=== PATIENT | female | born 1950 | race Caucasian/White ===

== ENCOUNTER 2016-08-10 06:18 | Day surgery (SDC) | payer OTHER ==
[~2016-08-10] VITALS: Ht 162.6 cm; Wt 45.4 kg
[~2016-08-10 06:18] MED LIST: LEVAQUIN500 MG PO; LORAZEPAM0.5 MG PO; MEDROL DOSEPAK4 MG PO; PREDNISONE20 MG PO; PROAIR HFA8.5 GM IH; ROBITUSSIN AC,T10 ML PO; SERTRALINE HCL25 MG PO; SPIRIVA1 INHALATI IH
[2016-08-10 07:49] VITALS: BP 145/67
[2016-08-10 07:54] LABS: PROTHROMBIN TIME 10.5 (9.2-11.2)
[2016-08-10 08:12] LABS: ALKALINE PHOSPHATASE 68 IU/L (3-129); ANION GAP 8 MEQ/L (2-14); CHLORIDE 102 MEQ/L (99-109); GFR ESTIMATE (CALCULATED) > 59 mL/min/; GLUCOSE 93 mg/dL (70-99); POTASSIUM 4.6 MEQ/L (3.7-5.4); SAMPLE HEMOLYSIS CHECK 1; SAMPLE ICTERIC CHECK 0; SAMPLE LIPEMIA CHECK 0; SODIUM 138 MEQ/L (136-147); TOTAL BILIRUBIN 0.4 MG/DL (0.0-1.0); UREA NITROGEN (BUN) 7 mg/dL (9-23)
[2016-08-10] MEDS ORDERED: COLACE100 MG PO (10:07)
[2016-08-10] MEDS ORDERED: NORCO 5/3251 TABLET PO (10:07)
[2016-08-10 10:33] VITALS: BP 111/53
[2016-08-10 12:00] VITALS: BP 119/51
== END 2016-08-10 12:35 | disposition home or self-care (01) ==
LOC: SDC 06:18
PROVIDERS: Thoracic Surgery (Cardiothoracic Vascular Surgery)
PROC: 0WBC4ZX Excision of Mediastinum, Percutaneous Endoscopic Approach, Diagnostic (ICD-10-PCS; principal; 2016-08-10)
DX: C34.12 Malignant neoplasm of upper lobe, left bronchus or lung (principal); F41.1 Generalized anxiety disorder; J44.9 Chronic obstructive pulmonary disease, unspecified; M81.0 Age-related osteoporosis without current pathological fracture
CPT/HCPCS: 80053; 85025; 85610; 86850; 86900; 86901; 88305; 93005; J0330; J0690; J1100; J1170; J2405; J2710; J3010

== ENCOUNTER 2016-10-18 13:02 | Emergency (ER) | payer OTHER ==
[~2016-10-18] VITALS: Ht 162.6 cm; Wt 46.3 kg
[~2016-10-18 13:02] MED LIST changes: +COLACE100 MG PO; +NORCO 5/3251 TABLET PO
[2016-10-18 14:04] LABS: BASOPHIL COUNT 0.1 K/uL (0-0.1); EOSINOPHIL (%) 0.1 % (0-5); HEMATOCRIT 43.8 % (36.0-46.0); IMMATURE GRANULOCYTE (%) 0.4 % (0.0-0.7); IMMATURE GRANULOCYTE COUNT 0.1 K/uL; INSTRUMENT ABS NEUTROPHIL CT 11.9 K/uL; LYMPHOCYTE COUNT 1.4 K/uL (1.0-2.8); MCH 32.1 PG (29.0-34.0); MCHC 33.3 G/DL (30.0-36.0); MCV 96.3 FL (83-99); MEAN PLAT.VOLUME 10.5 uM^3 (9.5-12.4); MONOCYTE COUNT 0.7 K/uL (0-0.8); NEUTROPHIL (%) 84.1 % (45-76); NEUTROPHIL COUNT 11.9 K/uL (1.8-6.4); PLATELET COUNT 260 K/uL (156-360); RBC DIS.WIDTH-CV 13.1 % (11.8-14.6); RBC DIS.WIDTH-SD 46.8 % (39-53); RED BLOOD COUNT 4.55 M/uL (3.80-5.20); WHITE BLOOD COUNT 14.1 K/uL (4.1-10.2)
[2016-10-18 14:14] LABS: CHLORIDE 101 mEq/L (99-109); POTASSIUM 4.1 mEq/L (3.7-5.4); SODIUM 139 mEq/L (136-147)
[2016-10-18 14:16] LABS: GLUCOSE 125 mg/dL (70-99)
[2016-10-18 14:17] LABS: ANION GAP 10 MEQ/L (2-14)
[2016-10-18 14:18] LABS: TOTAL BILIRUBIN 0.4 mg/dL (0.0-1.0)
[2016-10-18 14:20] LABS: ALKALINE PHOSPHATASE 84 IU/L (3-129); GFR ESTIMATE (CALCULATED) > 59 mL/min/
[2016-10-18 14:21] LABS: UREA NITROGEN (BUN) 9 mg/dL (9-23)
[2016-10-18 14:23] LABS: LIPASE 15 U/L (1.0-51.0)
[2016-10-18 16:45] LABS: ADD MIUA? YES; BILIRUBIN NEGATIVE; BLOOD SMALL; COLOR YELLOW ((YELLOW)); GLUCOSE (STRIP) NEGATIVE; KETONES NEGATIVE; LEUKOCYTES NEGATIVE; NITRITE NEGATIVE; PROTEIN (STRIP) NEGATIVE; UROBILINOGEN 0.2 MG/DL (0.2-1.0)
[2016-10-18 16:56] LABS: BACTERIA NONE SEEN /HPF; EPITHELIAL CELLS RARE /HPF; MUCUS TRACE /LPF; RED BLOOD CELLS 0-5 /HPF (0-5); WHITE BLOOD CELLS 0-5 /HPF (0-5)
[2016-10-18 17:05] LABS: CRYSTALS NONE SEEN
[2016-10-18 17:06] LABS: CASTS NONE SEEN /LPF
[2016-10-18] MEDS ORDERED: CONSTULOSE10 GM/15 M PO (17:07)
[2016-10-18] MEDS ORDERED: COLACE100 MG PO (17:07)
[2016-10-18 17:16] LABS: SPECIFIC GRAVITY > 1.030 (1.000-1.030)
[2016-10-18 17:27] VITALS: BP 104/57
== END 2016-10-18 17:28 | disposition home or self-care (01) ==
LOC: EME 13:02
PROVIDERS: Emergency Medicine
DX: K59.00 Constipation, unspecified (principal); C34.90 Malignant neoplasm of unspecified part of unspecified bronchus or lung; F17.200 Nicotine dependence, unspecified, uncomplicated; Z71.6 Tobacco abuse counseling
CPT/HCPCS: 74177; 80053; 81003; 83605; 83690; 85025; 99281; 99285; J1170; J2270; J2405; J3010; J7030; J7050

== ENCOUNTER 2016-10-19 11:15 | Emergency (ER) | payer OTHER ==
[~2016-10-19] VITALS: Ht 162.6 cm; Wt 46.0 kg
[~2016-10-19 11:15] MED LIST changes: +CONSTULOSE10 GM/15 M PO
[2016-10-19 12:29] LABS: HEMATOCRIT 43.6 % (36.0-46.0); MCH 31.9 PG (29.0-34.0); MCHC 32.6 G/DL (30.0-36.0); RBC DIS.WIDTH-CV 13.2 % (11.8-14.6); RBC DIS.WIDTH-SD 47.9 % (39-53); RED BLOOD COUNT 4.45 M/uL (3.80-5.20); WHITE BLOOD COUNT 12.9 K/uL (4.1-10.2)
[2016-10-19 12:52] LABS: TROP-I INTERPRETATION NEGATIVE; TROPONIN-I < 0.01 ng/mL (0.0-0.30)
[2016-10-19 13:50] LABS: CHLORIDE 101 mEq/L (99-109); POTASSIUM 3.9 mEq/L (3.7-5.4); SODIUM 135 mEq/L (136-147)
[2016-10-19 13:52] LABS: GLUCOSE 138 mg/dL (70-99)
[2016-10-19 13:53] LABS: ANION GAP 11 MEQ/L (2-14)
[2016-10-19 13:55] LABS: ALKALINE PHOSPHATASE 76 IU/L (3-129); GFR ESTIMATE (CALCULATED) > 59 mL/min/; TOTAL BILIRUBIN 0.6 mg/dL (0.0-1.0)
[2016-10-19 13:57] LABS: UREA NITROGEN (BUN) 8 mg/dL (9-23)
[2016-10-19 13:59] LABS: LIPASE 12 U/L (1.0-51.0)
[2016-10-19 14:59] LABS: MEAN PLAT.VOLUME 10.6 uM^3 (9.5-12.4); PLATELET COUNT 253 K/uL (156-360)
[2016-10-19 16:38] VITALS: BP 110/66
[2016-10-20] MEDS ORDERED: COL-RITE100 M1 PO (13:22)
[2016-10-20] MEDS ORDERED: LORAZEPAM1 MG PO (13:23)
[2016-10-20] MEDS ORDERED: SPIRIVA1 INHALATI IH (13:25)
[2016-10-20] MEDS ORDERED: NICOTINE LOZENGE4 MG BC (13:28)
== END 2016-10-19 16:38 | disposition home or self-care (01) ==
LOC: EME 11:15
PROVIDERS: Emergency Medicine; Nurse Practitioner Family
DX: K59.00 Constipation, unspecified (principal); J45.909 Unspecified asthma, uncomplicated; J44.9 Chronic obstructive pulmonary disease, unspecified; F32.9 Major depressive disorder, single episode, unspecified; F41.9 Anxiety disorder, unspecified; C34.90 Malignant neoplasm of unspecified part of unspecified bronchus or lung; F17.200 Nicotine dependence, unspecified, uncomplicated
CPT/HCPCS: 71020; 74000; 80048; 80053; 83605; 83690; 84484; 85027; 93005; 99281; 99284; J1885

== ENCOUNTER 2016-10-20 09:43 | Inpatient (IN) | payer OTHER ==
[~2016-10-20] VITALS: Ht 162.6 cm; Wt 45.0 kg
[2016-10-20 11:15] LABS: HEMATOCRIT 45.7 % (36.0-46.0); MCH 32.2 PG (29.0-34.0); MCHC 34.4 G/DL (30.0-36.0); RBC DIS.WIDTH-CV 13.1 % (11.8-14.6); RED BLOOD COUNT 4.88 M/uL (3.80-5.20)
[2016-10-20 11:17] LABS: MCV 93.6 FL (83-99); WHITE BLOOD COUNT 21.3 K/uL (4.1-10.2)
[2016-10-20 11:20] LABS: CHLORIDE 96 mEq/L (99-109); POTASSIUM 3.9 mEq/L (3.7-5.4); SODIUM 135 mEq/L (136-147)
[2016-10-20 11:22] LABS: GLUCOSE 161 mg/dL (70-99)
[2016-10-20 11:23] LABS: ANION GAP 15 MEQ/L (2-14)
[2016-10-20 11:25] LABS: ALKALINE PHOSPHATASE 68 IU/L (3-129)
[2016-10-20 11:26] LABS: GFR ESTIMATE (CALCULATED) > 59 mL/min/
[2016-10-20 11:27] LABS: UREA NITROGEN (BUN) 17 mg/dL (9-23)
[2016-10-20 11:29] LABS: LIPASE 10 U/L (1.0-51.0)
[2016-10-20 11:30] LABS: ADD MIUA? YES; BILIRUBIN NEGATIVE; BLOOD SMALL; COLOR YELLOW ((YELLOW)); GLUCOSE (STRIP) NEGATIVE; KETONES 5; LEUKOCYTES TRACE; NITRITE NEGATIVE; PROTEIN (STRIP) 30; UROBILINOGEN 0.2 MG/DL (0.2-1.0)
[2016-10-20 11:32] LABS: TOTAL BILIRUBIN 0.8 mg/dL (0.0-1.0)
[2016-10-20 11:59] LABS: INTER. NORMALIZED RATIO 1.2; PROTHROMBIN TIME 12.4 (9.2-11.2); PTT 30.1 (25-32)
[2016-10-20 12:00] LABS: BACTERIA NONE SEEN /HPF; EPITHELIAL CELLS RARE /HPF; HYALINE CASTS 20-30 /LPF; MUCUS TRACE /LPF; RED BLOOD CELLS 0-5 /HPF (0-5); UCUL ADDED? NO; WHITE BLOOD CELLS 0-5 /HPF (0-5)
[2016-10-20 12:14] LABS: MEAN PLAT.VOLUME 11.3 uM^3 (9.5-12.4); PLATELET COUNT 256 K/uL (156-360)
[2016-10-20 12:24] LABS: SPECIFIC GRAVITY 1.088 (1.000-1.030)
[2016-10-20] MEDS ORDERED: COL-RITE100 M1 PO (13:22)
[2016-10-20] MEDS ORDERED: LORAZEPAM1 MG PO (13:23)
[2016-10-20] MEDS ORDERED: SPIRIVA1 INHALATI IH (13:25)
[2016-10-20] MEDS ORDERED: NICOTINE LOZENGE4 MG BC (13:28)
[2016-10-20 19:26] LABS: HEMATOCRIT 43.4 % (36.0-46.0); MCH 31.6 PG (29.0-34.0); MCHC 33.2 G/DL (30.0-36.0); MCV 95.4 FL (83-99); RBC DIS.WIDTH-CV 13.2 % (11.8-14.6); RBC DIS.WIDTH-SD 47.2 % (39-53); RED BLOOD COUNT 4.55 M/uL (3.80-5.20); WHITE BLOOD COUNT 18.3 K/uL (4.1-10.2)
[2016-10-20 19:43] LABS: SAMPLE HEMOLYSIS CHECK 0; SAMPLE ICTERIC CHECK 0; SAMPLE LIPEMIA CHECK 0
[2016-10-20 19:53] LABS: TROP-I INTERPRETATION NEGATIVE; TROPONIN-I 0.01 ng/mL (0.0-0.30)
[2016-10-20 20:15] LABS: PLATELET COUNT UNABLE TO REPORT K/uL (156-360)
[2016-10-20 20:21] LABS: GFR ESTIMATE (CALCULATED) > 59 mL/min/; GLUCOSE 140 mg/dL (70-99); UREA NITROGEN (BUN) 18 mg/dL (9-23)
[2016-10-20 20:22] LABS: ANION GAP 7 MEQ/L (2-14); CHLORIDE 101 MEQ/L (99-109); POTASSIUM 4.2 MEQ/L (3.7-5.4); SODIUM 139 MEQ/L (136-147)
[2016-10-21] VITALS (7 sets, daily range): BP systolic 109–133; BP diastolic 57–64
[2016-10-21 07:13] LABS: TROP-I INTERPRETATION NEGATIVE; TROPONIN-I < 0.01 ng/mL (0.0-0.30)
[2016-10-21 07:23] LABS: HEMATOCRIT 38.2 % (36.0-46.0); MCH 32.1 PG (29.0-34.0); MCHC 33.5 G/DL (30.0-36.0); MCV 95.7 FL (83-99); MEAN PLAT.VOLUME 11.5 uM^3 (9.5-12.4); PLATELET COUNT 210 K/uL (156-360); RBC DIS.WIDTH-CV 13.5 % (11.8-14.6); RBC DIS.WIDTH-SD 47.8 % (39-53); RED BLOOD COUNT 3.99 M/uL (3.80-5.20)
[2016-10-21 07:26] LABS: WHITE BLOOD COUNT 12.4 K/uL (4.1-10.2)
[2016-10-21 07:29] LABS: ANION GAP 9 MEQ/L (2-14); CHLORIDE 100 MEQ/L (99-109); GFR ESTIMATE (CALCULATED) > 59 mL/min/; SAMPLE HEMOLYSIS CHECK 0; SAMPLE ICTERIC CHECK 0; SAMPLE LIPEMIA CHECK 0; SODIUM 139 MEQ/L (136-147); UREA NITROGEN (BUN) 15 mg/dL (9-23)
[2016-10-21 07:31] LABS: GLUCOSE 88 mg/dL (70-99)
[2016-10-21 23:35] LABS: BASE EXCESS 2.1 mEq/L (-3 to +3); BICARBONATE 30.3 mEq/L (22-26); CARBOXY HGB 2.2 % (0-5); METHEMOGLOBIN 1.7 % (0-1.5); PO2 101 mm Hg (80-100)
[2016-10-21 23:36] LABS: COMMENTS - BLOOD GASES A+C+; DEVICE HHFNC; FI02 100 %; O2 FLOW 50 L/MIN; PCO2 63 mm Hg (35-45); SITE RR
[2016-10-21 23:37] LABS: pH 7.29 (7.35-7.45)
[2016-10-22] VITALS (20 sets, daily range): BP systolic 104–135; BP diastolic 46–83
[2016-10-22 01:09] LABS: METH RESISTANT S AUREUS PCR NEGATIVE (NEGATIVE)
[2016-10-22 01:10] LABS: INFLUENZA A VIRAL ANTIGEN NEGATIVE; INFLUENZA B VIRAL ANTIGEN NEGATIVE
[2016-10-22 01:11] LABS: PROBE CHECK PASS; SPECIMEN PROCESSING CONTROL PASS
[2016-10-22 05:54] LABS: BASOPHIL COUNT 0.1 K/uL (0-0.1); EOSINOPHIL (%) 0.1 % (0-5); IMMATURE GRANULOCYTE (%) 0.3 % (0.0-0.7); INSTRUMENT ABS NEUTROPHIL CT 10.8 K/uL; LYMPHOCYTE COUNT 0.4 K/uL (1.0-2.8); MCH 32.4 PG (29.0-34.0); MCHC 33.2 G/DL (30.0-36.0); MCV 97.7 FL (83-99); MEAN PLAT.VOLUME 11.5 uM^3 (9.5-12.4); MONOCYTE (%) 4.8 % (3-12); MONOCYTE COUNT 0.6 K/uL (0-0.8); NEUTROPHIL (%) 90.6 % (45-76); NEUTROPHIL COUNT 10.8 K/uL (1.8-6.4); PLATELET COUNT 211 K/uL (156-360); RBC DIS.WIDTH-CV 13.4 % (11.8-14.6); RBC DIS.WIDTH-SD 48.2 % (39-53); RED BLOOD COUNT 3.89 M/uL (3.80-5.20); WHITE BLOOD COUNT 11.9 K/uL (4.1-10.2)
[2016-10-22 06:21] LABS: MAGNESIUM 1.7 mg/dl (1.3-2.7)
[2016-10-22 06:55] LABS: CREATINE KINASE 131 IU/L (1-294); TOTAL CK 131 IU/L (1-294)
[2016-10-22 07:32] LABS: TROP-I INTERPRETATION NEGATIVE; TROPONIN-I 0.02 ng/mL (0.0-0.30)
[2016-10-22 07:56] LABS: ANION GAP 16 MEQ/L (2-14); CHLORIDE 96 MEQ/L (99-109); GFR ESTIMATE (CALCULATED) > 59 mL/min/; GLUCOSE 84 mg/dL (70-99); POTASSIUM 3.7 MEQ/L (3.7-5.4); SODIUM 140 MEQ/L (136-147); UREA NITROGEN (BUN) 12 mg/dL (9-23)
[2016-10-22 14:47] LABS: CREATINE KINASE 130 IU/L (1-294); TOTAL CK 130 IU/L (1-294); TROP-I INTERPRETATION NEGATIVE; TROPONIN-I 0.03 ng/mL (0.0-0.30)
[2016-10-22 22:18] LABS: CREATINE KINASE 148 IU/L (1-294); TOTAL CK 148 IU/L (1-294)
[2016-10-22 22:23] LABS: TROP-I INTERPRETATION NEGATIVE; TROPONIN-I 0.04 ng/mL (0.0-0.30)
[2016-10-22 23:21] LABS: CK-MB 6.8 ng/mL (0.0-4.9)
[2016-10-23] VITALS (13 sets, daily range): BP systolic 98–130; BP diastolic 39–61
[2016-10-23 06:01] LABS: EOSINOPHIL (%) 0 % (0-5); HEMATOCRIT 36.5 % (36.0-46.0); IMMATURE GRANULOCYTE (%) 0.7 % (0.0-0.7); IMMATURE GRANULOCYTE COUNT 0.1 K/uL; INSTRUMENT ABS NEUTROPHIL CT 10.4 K/uL; LYMPHOCYTE COUNT 0.3 K/uL (1.0-2.8); MCH 31.5 PG (29.0-34.0); MCHC 33.2 G/DL (30.0-36.0); MCV 95.1 FL (83-99); MEAN PLAT.VOLUME 11.4 uM^3 (9.5-12.4); MONOCYTE (%) 6.6 % (3-12); MONOCYTE COUNT 0.8 K/uL (0-0.8); NEUTROPHIL (%) 89.9 % (45-76); NEUTROPHIL COUNT 10.4 K/uL (1.8-6.4); PLATELET COUNT 244 K/uL (156-360); RBC DIS.WIDTH-CV 13.2 % (11.8-14.6); RBC DIS.WIDTH-SD 45.3 % (39-53); RED BLOOD COUNT 3.84 M/uL (3.80-5.20); WHITE BLOOD COUNT 11.6 K/uL (4.1-10.2)
[2016-10-23 06:23] LABS: CREATINE KINASE 125 IU/L (1-294); TOTAL CK 125 IU/L (1-294)
[2016-10-23 06:28] LABS: TROP-I INTERPRETATION NEGATIVE; TROPONIN-I 0.02 ng/mL (0.0-0.30)
[2016-10-23 06:49] LABS: ANION GAP 9 MEQ/L (2-14); CHLORIDE 95 MEQ/L (99-109); GFR ESTIMATE (CALCULATED) > 59 mL/min/; POTASSIUM 3.5 MEQ/L (3.7-5.4); PROTHROMBIN TIME 10.4 (9.2-11.2); PTT 31.8 (25-32); SAMPLE HEMOLYSIS CHECK 0; SAMPLE ICTERIC CHECK 0; SAMPLE LIPEMIA CHECK 0; SODIUM 139 MEQ/L (136-147); UREA NITROGEN (BUN) 13 mg/dL (9-23)
[2016-10-23 06:57] LABS: GLUCOSE 176 mg/dL (70-99)
[2016-10-23 06:59] LABS: CK-MB 4.8 ng/mL (0.0-4.9)
[2016-10-24] VITALS (8 sets, daily range): BP systolic 101–145; BP diastolic 53–71
[2016-10-24 11:33] LABS: HEMATOCRIT 35.1 % (36.0-46.0); MCH 31.8 PG (29.0-34.0); MCHC 33.3 G/DL (30.0-36.0); MCV 95.4 FL (83-99); MEAN PLAT.VOLUME 11.1 uM^3 (9.5-12.4); PLATELET COUNT 259 K/uL (156-360); RBC DIS.WIDTH-CV 13.1 % (11.8-14.6); RBC DIS.WIDTH-SD 46.1 % (39-53); RED BLOOD COUNT 3.68 M/uL (3.80-5.20); WHITE BLOOD COUNT 11.7 K/uL (4.1-10.2)
[2016-10-24 12:05] LABS: ANION GAP 6 MEQ/L (2-14); CHLORIDE 97 MEQ/L (99-109); POTASSIUM 3.6 MEQ/L (3.7-5.4); SAMPLE HEMOLYSIS CHECK 0; SAMPLE ICTERIC CHECK 0; SAMPLE LIPEMIA CHECK 0; SODIUM 138 MEQ/L (136-147)
[2016-10-24 12:11] LABS: GFR ESTIMATE (CALCULATED) > 59 mL/min/; GLUCOSE 159 mg/dL (70-99); UREA NITROGEN (BUN) 17 mg/dL (9-23)
[2016-10-24 12:15] LABS: POINT-OF-CARE METER ID UU14162636
[2016-10-24 16:37] LABS: POINT-OF-CARE METER ID UU14174216; POINT-OF-CARE USER ID ENVKC36
[2016-10-25 00:20] VITALS: BP 133/62
[2016-10-25 05:20] VITALS: BP 130/67
[2016-10-25 07:40] VITALS: BP 115/84
[2016-10-25 15:10] VITALS: BP 143/67
[2016-10-25 19:30] VITALS: BP 130/75
[2016-10-26] VITALS (8 sets, daily range): BP systolic 109–144; BP diastolic 58–71
[2016-10-27 03:20] VITALS: BP 126/67
[2016-10-27 07:38] VITALS: BP 148/63
[2016-10-27 11:21] VITALS: BP 140/70
[2016-10-27 16:00] VITALS: BP 115/74
[2016-10-27] MEDS ORDERED: PREDNISONE10 MG PO ×2 (16:02→16:12)
== END 2016-10-27 17:50 | disposition home health service (06) | DRG 329 ==
LOC: EME → EDBD 09:43 → SDC 17:00 → EME 17:00 → 2SOUTH 18:53 → 4WEST 18:53 → 2EAST 18:53 → 4WEST 10-21 23:31 → 4EAST 10-24 12:27
PROVIDERS: Anesthesiology; Emergency Medicine; Physician Assistant Surgical; Surgery
DX: K55.069 Acute infarction of intestine, part and extent unspecified (principal); K56.5 Intestinal adhesions [bands] with obstruction (postinfection); J96.01 Acute respiratory failure with hypoxia; J44.1 Chronic obstructive pulmonary disease with (acute) exacerbation; I47.1 Supraventricular tachycardia; R18.8 Other ascites; J90 Pleural effusion, not elsewhere classified; C34.90 Malignant neoplasm of unspecified part of unspecified bronchus or lung; J45.909 Unspecified asthma, uncomplicated; F17.210 Nicotine dependence, cigarettes, uncomplicated
CPT/HCPCS: 36600; 71010; 71020; 74000; 74177; 80048; 80048 91; 80053; 81003; 82550; 82550 91; 82553; 82803; 82948; 83605; 83690; 83735; 84100; 84484; 85025; 85027; 85610; 85730; 86850; 86900; 86901; 87502; 87641; 88307; 93005; 93306; 94640; 94640 76; 94760; 94799; 97530 GO; 99202; 99281; 99284; 99285; J0153; J1170; J1650; J1885; J1940; J1956; J2060; J2270; J2405; J2543; J2710; J2920; J3010; J3370; J3480; J7030; J7050; J7120; S0028